=== PATIENT | female | born 1985 | race Caucasian/White ===

== ENCOUNTER 2024-01-04 10:51 | Outpatient (CLI) | payer BC, MEDICAID, SELFPAY ==
--- NOTE | 2024-01-04 11:01 | US_ITS ---
WS: [id number] ULTRASOUND ABDOMEN LIMITED CLINICAL INFORMATION: RUQ ABDOMINAL PAIN COMPARISON: None. FINDINGS: Liver Size: Mild hepatomegaly Craniocaudal length: 16.9 cm. Echogenicity: Normal. Surface nodularity: None. Mass (size and location): None. Bile ducts Intrahepatic ducts: Normal. Common bile duct diameter: 0.3 cm. Gallbladder Normal. Gallstones: None. Gallbladder sludge: None. Gallbladder wall thickening: None. Pericholecystic fluid: None. Sonographic Goldberg sign: Absent. Pancreas Normal as visualized. Right kidney: Normal. Hydronephrosis: None. Size: 10.3 cm x 4.7 cm x 5.4 cm. Abdominal aorta and IVC Visualized portions are normal. Ascites: None. US/US abdomen limited [id number] IMPRESSION: 1. Mild hepatomegaly. 2. Otherwise normal ultrasound
== END 2024-01-04 10:52 | disposition home or self-care (01) ==
LOC: RAD 10:52
PROVIDERS: PCP Family Medicine; Visit Provider Family Medicine
DX: R10.11 Right upper quadrant pain (principal)
CPT/HCPCS: 76705

== ENCOUNTER → 2024-01-24 13:18 | Outpatient (BNVA) | payer BC, MEDICAID, SELFPAY | PROVIDERS: PCP Family Medicine; Visit Provider Obstetrics & Gynecology | DX: N85.2 Hypertrophy of uterus (principal) | CPT/HCPCS: 76830; 76856 ==

== ENCOUNTER 2025-03-25 08:06 | Outpatient (CLI) | payer MEDICAID, SELFPAY ==
--- NOTE | 2025-03-25 08:16 | CTR_ITS ---
PROCEDURE INFORMATION: Exam: CT Neck With Contrast Exam date and time: 03/25/2025 8:41 AM Age: 39 years old Clinical indication: Otalgia, pain in ears in jaw x 1 year TECHNIQUE: Imaging protocol: Computed tomography of the neck with contrast. Radiation optimization: All CT scans at this facility use at least one of these dose optimization techniques: automated exposure control; mA and/or kV adjustment per patient size (includes targeted exams where dose is matched to clinical indication); or iterative reconstruction. Contrast material: OMNI 350; Contrast volume: 100 ml; Contrast route: INTRAVENOUS (IV); COMPARISON: No relevant prior studies available. RADIATION DOSE METRICS: Total DLP (mGy-cm): 172.51 FINDINGS: Brain: Visualized intracranial structures are unremarkable. Orbital cavities: Partially visualized orbits are unremarkable. Paranasal sinuses: The paranasal sinuses are clear. Mastoid air cells: The visualized tympanomastoid cavities are clear. Nasal cavity: Unremarkable. Salivary glands: The parotid and submandibular glands are unremarkable. Oral cavity: Oral cavity is unremarkable. Teeth: Dentition is intact. Pharynx: Unremarkable. No abnormal tonsillar enlargement. Nasopharynx is unremarkable. Hypopharynx and supraglottic larynx are unremarkable. Larynx: Laryngeal structures are unremarkable. Thyroid: Thyroid gland: Unremarkable. Trachea: Visualized trachea is unremarkable. Thymus: Partially visualized residual thymic tissue in the anterior mediastinum. Lungs: The lung apices are clear. Esophagus: Visualized esophagus is unremarkable. Lymph nodes: No cervical adenopathy by imaging size criteria. Vasculature: Unremarkable. Bones/joints: Mild sclerosis of the left mandibular condyle at the TMJ. Otherwise the temporomandibular joints are unremarkable. Temporomandibular joints are normally aligned. Soft tissues: Unremarkable. CT/CT neck w con* [id number] IMPRESSION: No acute findings.
[2025-03-25] MEDS: iohexol 350 mg/mL 500 mL Btl (per mL) IV (08:46)
== END 2025-03-25 08:07 | disposition home or self-care (01) ==
LOC: RAD 08:12
PROVIDERS: PCP Family Medicine; Visit Provider Specialist
DX: H92.03 Otalgia, bilateral (principal); M54.2 Cervicalgia; M26.602 Left temporomandibular joint disorder, unspecified
CPT/HCPCS: 70491